=== PATIENT | male | born 1965 ===

== ENCOUNTER 2023-06-29 08:00 | Day surgery (SDC) | payer OTHER ==
[~2023-06-29] VITALS: Ht 177.8 cm; Wt 90.7 kg
[~2023-06-29 08:00] MED LIST: CABERGOLINE0.5 MG; SYNTH PO; VASOTEC10 MG PO; WELLBUTRIN XL300 MG PO
[2023-06-29] MEDS ORDERED: ALLERGY RELIE15.8 ML NASAL (09:50)
== END 2023-06-29 13:50 | disposition home or self-care (01) ==
LOC: CIR.AMB 08:00
PROVIDERS: ATTEND Otolaryngology Otology & Neurotology
DX: H68.102 Unspecified obstruction of Eustachian tube, left ear (principal); J34.3 Hypertrophy of nasal turbinates; Z20.822 Contact with and (suspected) exposure to COVID-19
CPT/HCPCS: 69705; L8699